=== PATIENT | female | born 2005 | race Caucasian/White ===

== ENCOUNTER 2025-05-27 09:22 | Outpatient (AMB) | payer OTHER, SELFPAY ==
--- NOTE | 2025-05-27 09:26 | MHC.PC.OV ---
Vital Signs 05/27/25 09:34 05/27/25 10:05 Height 5 ft 4 in Weight 165 lb 4 oz BMI 28.4 BP 98/67 Blood Pressure Location Lt brachial Position Sitting Respiration 12 Pulse 103 H 90 Pulse Source Pulse Oximeter Auscultation Temp 97.1 F Temp Source Oral Pulse Oximetry (%) 99 Oxygen Delivery Method Room Air Intake Visit Reasons: CPE Intake Note: New patient to establish care and cpe School Supervisor Required: No Allergies No Known Allergies Allergy (Verified 05/27/25 09:38) Medication List - Last Reviewed 05/27/25 by Artem Ventura MA bupropion HCl 75 mg PO TID methylphenidate HCl ER (Concerta) 54 mg PO QAM trazodone 50 mg PO BEDTIME PRN Tobacco use date assessed: 05/27/25 Dental Screening Dental Screen Date: 05/27/25 Did you have a dental visit in the last 12 months?: Yes Did you have a dental problem in the last 6 months where you did not have access to dental care?: No Was dental information given to patient?: Patient has dentist HPI HPI Comments History of Present Illness Details 19 y/o F with ADHD, JODIE, OCD, MDD Social: works at [employer]; vapes nicotine & marijauna Surgery: None Fhx: Mom and Dad alive; No relationship w/ bio dad; Health Maintenance Pap to be done this year Tdap 2016 Specialists: Optho wears glasses Cards reports she was evaled in the past; i dont have these records. Had what sounds like Event Monitor. STates negative. [facility] in [place] Previous PCP Dr Prema Adamson records - The patient is a 19-year-old female presenting with ADHD. - Concerta: taking for ADHD, wants to stop as it causes sweats, tachycardia. . - Anxiety results in panic attacks and OCD behaviors. - Strattera previously ineffective for ADHD and anxiety. - Depression/OJDIE managed with Wellbutrin. - Current use of trazodone for sleep. - Sx of MDD JODIE OCD ADHD remain uncontrolled was in counseling in the past interested in counseling and med mgmt referral - Nicotine and cannabis use reported; plans to quit nicotine. Past Surgical History - No surgery history reported. Family History - Maternal history of various autoimmune disorders, heart issues, and upcoming knee replacement surgery at age 42. - Biological father with substance abuse history and no relationship maintained. 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 - Vaping nicotine and using a THC/CBD combination for relaxation, though acknowledges nicotine exacerbates anxiety. - Long-term relationship with a boyfriend (4 years). - Previously under care of a pediatric therapist until adulthood; seeking adult therapist. Review of Systems - Psychiatric: Reports anxiety, OCD behaviors, and history of depression. - Cardiovascular: Reports irregular heart rate related to past Concerta use. - Respiratory: Denies current issues. - Gastrointestinal: Polyuria noted. Physical Exam General: Well developed, well nourished, in no acute distress. Appears stated age. Head: Normocephalic, atraumatic. Eyes: Pupils are equal, round and reactive to light and accommodation. Conjunctivae are clear. Vision grossly normal. Ears: TMs clear AU, EACS WNL Nose: Patent, without discharge.Mouth: There are no ulcers or lesions noted. No inflammation, no post nasal drip, no plaques nor exudates. Neck: Supple, no adenopathy or thyromegaly. Breast: Edu on SBE Lungs: Clear to auscultation bilaterally. No rales, rhonchi or wheeze noted. Good air flow in all diaz. Heart: Regular rate and rhythm. No murmurs, click, rubs or gallops are noted. Abdomen: Bowel sounds present in all quadrants. The abdomen is soft, nontender, with no masses or organomegaly noted. No hernias are noted. : Deferred. Reviewed recommendations for routine MEDICAL COMMUNICATION SPECIALIST Musculoskeletal: Joints are nontender, without swelling, redness, or effusions. Range of motion is observed to be normal. Pulses: Peripheral pulses are equal and palpable bilaterally. Extremities: No clubbing, cyanosis nor edema is noted. Neurologic: Gait and station normal. Cranial Nerves 2-12 intact. Motor strength grossly symmetrical and intact. No sensory loss. Balance normal. Skin: No rashes, ulcers, or lesions noted. Turgor is good. Skin color is good. Hair and nails are without abnormalities. Psych: Normal eye contact, affect and mood appropriate, and normal interactions. Anxious, pleasant Results Pending Discussion Notes I discussed with the patient her concerns regarding ADHD medication. I reviewed the adverse effects she experienced with Concerta, including tachycardia and anxiety exacerbation, and agreed to discontinue the medication. We discussed previous medication trials such as Strattera, which was ineffective, and her current regimen of Wellbutrin and Trazodone. We also discussed her nicotine use via vaping and cannabis use and acknowledged that while cannabis seems calming, nicotine worsens anxiety. She expressed a desire to quit nicotine, and I encouraged this plan. For her anxiety and OCD, I will place a referral for both counseling and a psychiatrist or medication entry level management who accepts her insurance. I initiated the process for necessary blood work today to investigate additional conditions such as diabetes. I reassured her of local mental health resources and crisis lines available to her. Patient was given time to ask questions. All questions were answered to their satisfaction. Assessment and Plan 1. ADHD - Discontinue Concerta. 2. Anxiety and OCD - Referral for psychiatric evaluation. - Encourage nicotine cessation. 3. Depression - Continue Wellbutrin. 4. Nicotine Dependence - Efforts to cease discussed. Patient Instructions - Discontinue Concerta immediately. - Continue taking Wellbutrin as prescribed. - Use Trazodone as a sleep aid when necessary. - Expect a call for a referral to a counselor and psychiatrist. - Attempt to quit vaping nicotine; seek out resources to assist with quitting. - Complete blood work today to check for diabetes. - Visit urgent care or hospital if anxiety becomes unmanageable. - Contact the office through the [facility] for any concerns or needed appointments. - RTO 1 year CPE Consent Patient was informed and verbally consented to the use of an ambient scribe for clinic note documentation during this visit. An additional 30 minutes was spent addressing the problem(s) noted at todays visit. This includes time spent before the visit reviewing the chart, time spent during the visit, and time spent after the visit on documentation reviewing laboratory results, diagnostic imaging, medications, performing a medically necessary evaluation, counseling on diagnoses, care coordination, ordering appropriate tests, ordering appropriate medications, review of tests performed by other providers, reporting test results with the patient, communication with other healthcare providers. COUNT INCLUDES THE [facility] Medical History (Updated 05/27/25 @ 10:11 [facility] Anxiety Hemorrhoids No pertinent family history Palpitations Surgical History (Updated 05/27/25 @ 09:40 by Artem Ventura MA) No pertinent past surgical history Social History (Updated 05/27/25 @ 09:26 by Artem Ventura MA) Housing: House Alcohol intake: current Alcohol intake frequency: a few times a month Patient Tobacco Use Status: Never used Tobacco e-Cigarette/Vaping Use: Never Used Second Hand Smoke Exposure: No service: No Current occupational status: employed Current occupation: [employer] Cognitive needs: No Hearing needs: No Vision needs: Yes (wear glasses) Questionnaire PHQ-9 Over the last 2 weeks, how often have you been bothered by any of the following problems? 1. Little interest or pleasure in doing things: several days 2. Feeling down, depressed, or hopeless: not at all 3. Trouble falling or staying asleep, or sleeping too much: several days 4. Feeling tired or having little energy: several days 5. Poor appetite or overeating: several days 6. Feeling bad about yourself - or that you are a failure or have let yourself or your family down: not at all 7. Trouble concentrating on things, such as reading the newspaper or watching television: more than half the days 8. Moving or speaking so slowly that other people could have noticed. Or the opposite - being so fidgety or restless that you have been moving around a lot more than usual: more than half the days 9. Thoughts that you would be better off or of hurting yourself in some way: not at all Total score: 8 Depression Screening Interpretation: Positive Depression Screening Follow-up: Existing condition and In treatment Depression Screening Done: Yes 65885 - PHQ-9 Billing: Yes Source: Developed by Drs. Nathanael Amin, Isabela Garcia, Malvin Smith and colleagues, with an educational rigoberto from [employer]. Thrive Questionnaire Date Thrive assessed: 05/27/25 I am a: Patient What is your living situation today?: I have a steady place to live Within the past 12 months, did the food you bought not last and you didn't have the money to get more?: Never true Within the past 12 months, did you worry whether your food would run out before you got money to buy more?: Never true Do you have trouble paying for medicines?: No Do you have trouble getting transportation to medical appointments?: No Do you have trouble paying your heating and electricity bill?: No Do you have trouble taking care of your child, family member or friend?: No Do you have trouble with day-to-day activities such as bathing, preparing meals, shopping, managing finances, etc.?: No Are you currently unemployed and looking for a job?: No Are you interested in more education?: No Please select the resources that you would like help with: None Currently or been in a relationship where the following occur: No concerns reported THRIVE Score: 0 AUDIT C Alcohol Use Questionnaire (AUDIT-C) 1. How often do you have a drink containing alcohol?: 2-4 times a month 2. How many drinks containing alcohol do you have on a typical day when you are drinking?: 3 or 4 3. How often do you have six or more drinks on one occasion?: Less than monthly Total Score: 4 Score Reviewed/Action Taken: Yes JODIE-7 AMB Questionnaire JODIE-7 Date JODIE - 7 assessed: 05/27/25 Feeling nervous, anxious, or on edge: 3 = Nearly every day Not being able to stop or control worryin = Nearly every day Worrying too much about different things: 3 = Nearly every day Trouble relaxin = Nearly every day Being so restless that it is hard to sit still: 3 = Nearly every day Becoming easily annoyed or irritable: 3 = Nearly every day Feeling afraid as if something awful might happen: 3 = Nearly every day Total JODIE-7 score (0-4 normal; 5-9 mild; 10-14 moderate; 15-21 severe): 21 Source: Developed by Drs. Nathanael Amin, Isabela Garcia, Malvin Smith and colleagues, with an educational rigoberto from [employer]. JODIE-7 Assessment Billing JODIE-7 Assessment Tool: JODIE-7 Assessment 01739 Physical exam (Primary Care) Vital Signs: Last Vital Signs Temp 97.1 F 05/27/25 09:34 Pulse 103 H 05/27/25 09:34 Resp 12 05/27/25 09:34 BP 98/67 05/27/25 09:34 Pulse Ox 99 05/27/25 09:34 Oxygen Delivery Method Room Air 05/27/25 09:34 BMI result Body Mass Index 28.4 Tobacco/Smoking Status: Tobacco use Status Tobacco use date assessed 05/27/25 05/27/25 09:29 Patient Tobacco Use Status Never used Tobacco 05/27/25 09:29 e-Cigarette/Vaping Use Never Used 05/27/25 09:29 PHQ-9: PHQ-9 Score PHQ-9: Total score 8 05/27/25 09:32 Depression Screening Interpretation: Positive Depression Screening Follow-up: Existing condition and In treatment Thrive Assessment: Date of Thrive Assessment Date Thrive assessed 05/27/25 05/27/25 09:29 Currently or been in a relationship where the following occur: No concerns reported Coding Level of Care Code New Pt Level 3 (39255) New Pt Prev Care 18-39yr(33263 Diagnoses Encounter to establish care with new provider Z76.89 JODIE (generalized anxiety disorder) F41.1 Attention deficit hyperactivity disorder (ADHD), predominantly inattentive type F90.0 Attention deficit-hyperactivity disorder type: predominantly inattentive Mixed obsessional thoughts and acts F42.2 Obsessive-compulsive disorder type: mixed obsessional thoughts and acts Nicotine vapor product user Z72.0 Marijuana use F12.90 Laboratory exam ordered as part of routine general medical examination Z00.00 IUD (intrauterine device) in place Z97.5 Encounter for general adult medical examination without abnormal findings Z00.00 Additional Codes JODIE-7 Assessment Billing - JODIE-7 Assessment Tool: JODIE-7 Assessment 75353 ([id number]) PHQ-9 - 31886 - PHQ-9 Billing: Yes ([id number]) Assessment & Plan Assessment & Plan (1) Encounter to establish care with new provider: Code(s): Z76.89 - Persons encountering health services in other specified circumstances (2) JODIE (generalized anxiety disorder): Comment: has been on clonidine, vistaril, ativan and escitalopram in the past Code(s): F41.1 - Generalized anxiety disorder Category: Medical (3) ADHD: Comment: concerta caused cold sweats, shakes and tachycardia trialed straterra this did not help ADHD sx Code(s): F90.9 - Attention-deficit hyperactivity disorder, unspecified type Category: Medical Qualifiers: Attention deficit-hyperactivity disorder type: predominantly inattentive Qualified Code(s): F90.0 - Attention-deficit hyperactivity disorder, predominantly inattentive type (4) OCD (obsessive compulsive disorder): Code(s): F42.9 - Obsessive-compulsive disorder, unspecified Category: Medical Qualifiers: Obsessive-compulsive disorder type: mixed obsessional thoughts and acts Qualified Code(s): F42.2 - Mixed obsessional thoughts and acts (5) Nicotine vapor product user: Code(s): Z72.0 - Tobacco use Category: Social Hx (6) Marijuana use: Code(s): F12.90 - Cannabis use, unspecified, uncomplicated Category: Social Hx (7) Laboratory exam ordered as part of routine general medical examination: Code(s): Z00.00 - Encounter for general adult medical examination without abnormal findings Category: Medical (8) IUD (intrauterine device) in place: Code(s): Z97.5 - Presence of (intrauterine) contraceptive device Category: Medical (9) Encounter for general adult medical examination without abnormal findings: Onset Date: ~05/27/25 Code(s): Z00.00 - Encounter for general adult medical examination without abnormal findings Category: Medical Plan . Orders: Orders Complete Blood Count no Diff Today Z00.00 - Encounter for general adult medical examination without abnormal findings TSH reflex Free T4 Today Z00.00 - Encounter for general adult medical examination without abnormal findings Comprehensive Met. Panel Today Z00.00 - Encounter for general adult medical examination without abnormal findings Hemoglobin A1c Today Z00.00 - Encounter for general adult medical examination without abnormal findings Lipid Panel Today Z00.00 - Encounter for general adult medical examination without abnormal findings Vitamin B12 and Folate Today Z00.00 - Encounter for general adult medical examination without abnormal findings Vitamin D 25-OH Total Today Z00.00 - Encounter for general adult medical examination without abnormal findings Referrals Nurse Navigator Referral F41.1 - Generalized anxiety disorder, F42.9 - Obsessive-compulsive disorder, unspecified, F90.9 - Attention-deficit hyperactivity disorder, unspecified type Patient Instructions: Walk-In Care (Urgent Care): We Make it Easy Walk-in for urgent medical issues such as: ? Seasonal Allergies ? Insect Bites ? Cough ? Diarrhea ? Acute Asthma Attacks ? Back, Knee or Joint Pain ? Ear Infection ? Fever without a Rash ? Headaches ? Nausea ? [place] Eye, Rash or Skin Irritation ? Sore Throat ? Sports Physicals ? Vomiting Most insurances are accepted. Patients do not need to be part of the [facility] to seek care at the walk-in clinic. Locations [facility] , [place] [address] ? [phone] [facility] in [place] provides services to ages 18 and over. Open Friday-Friday: 7 a.m. to 5 p.m. and Friday: 9 a.m. to 3 p.m.* *Hours may vary due to staffing availability. To confirm Walk-In Care hours in [place], please call [phone]. [address] [place] [address] ? [phone] [facility] in [place] provides services to ages 12 and over. Open Friday-Friday: 8 a.m. to 5 p.m. Hours may vary due to staffing availability. To confirm Walk-In Care hours in [place], please call [phone]. LABORATORY SERVICES: [facility] Lab ? Primary Location [address] [place] [address] Friday through Friday 6:00 AM ? 5:00 PM Friday 7:00 AM ? 11:00 AM* [phone] The [facility] Lab is centrally located near the front entrance of the [facility] for easy outpatient access. Convenient parking is provided for outpatients. *Hours may vary due to staffing availability. To confirm Laboratory hours for any location, please call [phone]. Offsite Location For your convenience, we offer offsite laboratory draw stations at the following locations: [address] [place] [address] ? [address], [address] Friday through Friday 7:30 AM ? 1:00 PM* [phone] *Hours may vary due to staffing availability. To confirm Laboratory hours for any location, please call [phone]. [place] ? [address] Friday through Friday 6:00 AM ? 3:30 PM* Friday 6:30 AM ? 3 PM* [phone] *Hours may vary due to staffing availability. To confirm Laboratory hours for any location, please call [phone] [place] [address] Friday through Friday 7:30 AM ? 4:00 PM* [phone] *Hours may vary due to staffing availability. To confirm Laboratory hours for any location, please call [phone]. [facility] Friday through 9:00 AM ? 4:00 PM* *Hours may vary due to staffing availability. To confirm Laboratory hours for any location, please call [phone]. Appointments are not necessary. Walk-ins are welcome. Like all the departments throughout the [facility], our Lab undergoes frequent reviews to ensure the quality and accuracy of test results, and our staff takes special pride in its status as a nationally accredited facility. Patient Portal: [facility] ONE PATIENT. ONE RECORD. BETTER CARE. [facility] has a fully integrated, cutting-edge mobile electronic health information system that has revolutionized the way we care for our patients and manage our organization. This system improves communication and coordination enabling us to provide safe, higher-quality care, and an overall positive experience for staff and patients. Our first priority, as always, is to deliver the highest quality care possible. The system is running in the background supporting that priority. This portal is for all [facility] services and practices. If you are experiencing any technical difficulties with enrolling or logging into the Patient Portal please complete the [facility] Patient Portal Technical Support Form. [facility] now offers a new secure on-line interactive tool for patients to review their health information ? ?Patient Portal. This interactive web portal will enable patients and their families to take an active role in their care by providing easy, secure access to their health information via the internet. The Patient Portal provides patients with instant access to their health information, including laboratory results, medications, allergies, demographic information, visit history, and more. In addition to managing their own care, parents and health care proxies with authorized consent will appreciate the ability to access the records of those individuals for whom they provide care. Please note: if you wish to gain access (Proxy) to another patient?s portal, you will be required to come to the Medical Records Department in person at [facility]. Both the patient giving proxy access and the proxy will need to provide photo identification and complete the appropriate authorization. The Patient Portal also allows track their appointments online. The [facility] Patient Portal also saves patients time by allowing them to submit updates to their demographic and contact information prior to their visits. Portal email notifications will also alert patients to any new activity on their portal, such as test results and new appointments. In order to initially enroll in the [facility] Patient Portal, you will need to enter some required information including the following: your [facility] Medical Record number your personal home email address name date of Please note: In order to enroll in the [facility] Patient Portal, we need to have your email address on file in your electronic medical record. ?The email address needs to be specific for one person (yourself) in order for your Portal enrollment to be successful. ?You can update your email address in person with our Registration staff when you are registering for a hospital visit. ?Otherwise, you will need to come to the Health Information Management (Medical Records) Department at [facility]. ?We are open from Friday ? Friday from 7:30 a.m. ? 4:30 p.m. ?You will be required to present a photo id. Once you have successfully enrolled in the Patient Portal, you will receive a one-time user id and password for the Portal, sent to your email address. ?This will allow you to log into the Patient Portal within 99 hrs and reset your own logon id and password, and define personal security questions. ?Once your permanent login and password have been set, you can log into the [facility] Patient Portal at any time via the blue button above or from the Portal Logon button on any page of the [facility] website. [facility] encourage all of our patients to enroll in Patient Portal as it presents a valuable opportunity for patients and their families to actively participate in their care and stay healthy Welcome to [facility]. ?We look forward to working with you. National Suicide and Crisis Lifeline: Available 24 hours a day, 7 days a week, 365 days a year Dial 988 with any telephone to speak to someone immediately [address] [address] , Walk ins [facility] (Mental / Behavioral health therapist: [address] [place] [address] [facility]: [address], [place] [id number] Open from 10am - 12pm (walk ins [place]) [facility] Crisis Services: [address] [place] [address] Walk in hours from 10am - 12pm Behavioral health Network: [address] [place] [phone] [place] [id number] Friday through Friday 8am - 8pm Friday and Friday 9am - 5pm Crisis Hotlines Suicide prevention, domestic violence, and other crisis hotlines for youth, young adults, and their friends and families. [facility] Safeline: The [facility] Safeline helps youth who have run away, are thinking about running away, or who already ran away but are ready to come home. Parents and guardians can also contact the hotline if they are worried about their child running away or if their child has already left home. The hotline is available 24 hours a day, seven days a week. Youth, parents, and guardians can also use the online chat feature on the [facility] website to ask for help and get support, or can send a text to [facility]. [facility] National Suicide Prevention Lifeline: The National Suicide Prevention Lifeline is a network of local crisis centers that are available 28/04 to provide support for youth and adults who are in any kind of emotional crisis. In addition to the main hotline number listed above, there are several other numbers to call depending on your needs: Chilean Language: Deaf and Hard of [phone] Veterans: Disaster Distress: Anyone can also use their online chat feature on their website. National Suicide Prevention Lifeline [facility] Helpline: The [facility] Helpline is available to anyone in [place] who is need of emotional support. Anyone can call or text the helpline to receive help from specially trained volunteers. [place] high school and college students can also get online support through the IMH[employer]_ program. For high school students, volunteers ages 15-18 are available Friday- from 6-9PM. For college students, IMHear_ is available Friday-Friday from 5-9PM. The Avery Project - The Avery Project is a 28/04 crisis intervention and suicide prevention hotline for LGBTQ youth. Youth can also text Avery to for support, or use the online chat feature on the Avery Project's website. [employer] is available Friday-Friday between 3-10PM. [employer] is available seven days a week between 3-10PM. SafeLink: SafeLink is for anyone who is being affected by domestic violence or dating violence. Volunteers at [employer] speak Indonesian and [place]an, and [employer] also has a service that can provide translation in more than 130 languages. TTY: Health screenings for women You should visit your health care provider from time to time, even if you are healthy. The purpose of these visits is to: Screen for medical issues Assess your risk for future medical problems Encourage a healthy lifestyle Update vaccinations and other preventive care services Help you get to know your provider in case of an illness Information Even if you feel fine, you should still see your provider for regular checkups. These visits can help you avoid problems in the future. For example, the only way to find out if you have high blood pressure is to have it checked regularly. High blood sugar and high cholesterol levels also may not have any symptoms in the early stages. A simple blood test can check for these conditions. There are specific times when you should see your provider or receive specific health screenings. The [place] Preventive Services Task Force publishes a list of recommended screenings. Below are screening guidelines for women ages 18 to 39. BLOOD PRESSURE SCREENING Your blood pressure should be checked at least once every 3 to 5 years if: Your blood pressure is in the normal range (top number less than 120 mm Hg and bottom number less than 80 mm Hg) You don't have risk factors for high blood pressure Ask your provider if you need your blood pressure checked more often if: The top number is 120 to 129 mm Hg or the bottom number is 70 to 79 mm Hg You have diabetes, heart disease, kidney problems, are overweight, or have certain other health conditions You have a first-degree relative with high blood pressure You are Black You had high blood pressure during a If the top number is 130 mm Hg or greater or the bottom number is 80 mm Hg or greater, this is considered stage 1 hypertension. Schedule an appointment with your provider to learn how you can reduce your blood pressure. Watch for blood pressure screenings in your area. Ask your provider if you can stop in to have your blood pressure checked. BREAST CANCER SCREENING Experts do not agree about the benefits of breast self-exams in finding breast cancer or saving lives. Talk to your provider about what is best for you. A screening mammogram is not recommended for most women under age 40. Your provider may discuss and recommend mammograms, MRI scans, or ultrasounds if you have an increased risk for breast cancer, such as: A mother or sister who had breast cancer at a young age (most often starting screening earlier than the age the close relative was diagnosed) You carry a high-risk genetic marker CERVICAL CANCER SCREENING Cervical cancer screening should start at age 21 years unless your provider advises otherwise. After the first test: Women ages 21 through 29 should have a Pap test every 3 years. Exoprts do not agree on whether HPV testing is recommended for this age group. Women ages 30 through 65 should be screened with either a Pap test every 3 years or the HPV test every 5 years or both tests every 5 years (called cotesting ). Women who have been treated for precancer (cervical dysplasia) should continue to have Pap tests for 20 years after treatment or until age 65, whichever is longer. If you have had your uterus and cervix removed (total hysterectomy), and you have not been diagnosed with cervical cancer or precancer (high grade cervical neoplasia), you do not need cervical cancer screening. CHOLESTEROL SCREENING Cholesterol screening should begin at: Age 45 for women with no known risk factors for coronary heart disease Age 20 for women with known risk factors for coronary heart disease Repeat cholesterol screening should take place: Every 5 years for women with normal cholesterol levels More often if changes occur in lifestyle (including weight gain and diet) More often if you have diabetes, heart disease, kidney problems, or certain other conditions DIABETES SCREENING You should be screened for diabetes starting at age 35 and then repeated every 3 years if you have no risk factors for diabetes. Screening may need to start earlier and be repeated more often if you have other risk factors for diabetes, such as: You have a first degree relative with diabetes. You are overweight or have obesity. You have high blood pressure, prediabetes, or a history of heart disease. Screening for diabetes should be done if you are planning to become and you are overweight and have other risk factors such as high blood pressure. DENTAL EXAM Go to the dentist once or twice every year for an exam and cleaning. Your dentist will evaluate if you need more frequent visits. EYE EXAM Have an eye exam every 5 to 10 years before age 40. If you have vision problems, have an eye exam every 2 years or more often if recommended by your provider. You should have an eye exam that includes an examination of your retina (back of your eye) at least every year if you have diabetes. IMMUNIZATIONS Commonly needed vaccines include: Flu shot: get one every year. COVID-19 vaccine: ask your provider what is best for you. Tetanus-diphtheria and acellular pertussis (Tdap) vaccine: have one at or after age 19 as one of your tetanus-diphtheria vaccines if you did not receive it as an adolescent. Tetanus-diphtheria: have a booster (or Tdap) every 10 years. Varicella vaccine: receive 2 doses if you never had chickenpox or the varicella vaccine. Hepatitis B vaccine: receive 2, 3, or 4 doses, depending on your exact circumstances. Measles, mumps, and rubella (MMR) vaccine: receive 1 to 2 doses if you are not already immune to MMR. Your provider can tell you if you are immune. Ask your provider about the human papillomavirus (HPV) vaccine if: You have not received the HPV vaccine in the past You have not completed the full vaccine series (you should catch up on this shot) Ask your provider if you should receive other immunizations if you have certain health problems that increase your risk for some diseases such as pneumonia. INFECTIOUS DISEASE SCREENING Women who are sexually active should be screened for chlamydia and gonorrhea up until age 25. Women 25 years and older should be screened for chlamydia and gonorrhea if at high risk. Screening for hepatitis C: All adults ages 18 to 79 should get a one-time test for hepatitis C. people should be screened at every . Screening for human immunodeficiency virus (HIV): All people ages 15 to 65 should get a one-time test for HIV. Depending on your lifestyle and medical history, you may also need to be screened for infections such as syphilis and HIV, as well as other infections. PHYSICAL EXAM All adults should visit their provider from time to time, even if they are healthy. The purpose of these visits is to: Screen for disease Assess your risk of future medical problems Encourage a healthy lifestyle Update your vaccinations and other preventive care services Maintain a relationship with a provider in case of an illness Your height, weight, and BMI should be checked at every exam. During your exam, your provider may ask you about: Depression and anxiety Diet and exercise Alcohol and tobacco use Safety issues, such as using seat belts, smoke detectors, and intimate partner violence Your medicines and risk for interactions SKIN SELF-EXAM Your provider may check your skin for signs of skin cancer, especially if you're at high risk, such as if you: Have had skin cancer before Have close relatives with skin cancer Have a weakened immune system OTHER SCREENING Talk with your provider about colon cancer screening if you have a strong family history of colon cancer or polyps, or if you have had inflammatory bowel disease or polyps yourself. Routine bone density screening of women under 40 is not recommended.
--- OUTSIDE RECORDS SUMMARY | 2025-05-27 09:28 | XMS_ITS | Clinical Summary ---
Author Organization [facility] it Address [address] [place] [address] Care Team Providers Care Town Planner Name Role Phone Carisa Lloyd MD Primary Care Provider [phone] Social History Tobacco Use Types Packs/Day Years Used Date Smoking Tobacco: Never Smokeless Tobacco: Never Comments Unknown Sex and Gender Information Value Date Recorded Sex Assigned at Not on file Legal Sex Female 3:36 AM EST Gender Identity Not on file Sexual Orientation Not on file Obstetrics History Plan of Treatment Health Maintenance Due Date Last Done Comments Gonorrhea/Chlamydia Screening 2003 HPV Vaccines (1 - 3-dose series) 2018 Meningococcal B Vaccine (1 o f 2 - Standard) 2019 Hepatitis A Vaccines (2 of 2 - 2-dose series) 01/08/2020 07/09/2019 DTaP,Tdap,and Td Vaccines (1 - Tdap) 2022 Hepatitis B Vaccines (1 of 3 - 19+ 3-dose series) 2022 Annual Well Child Visit (3-2 1 years old) 11/04/2023 07/09/2019 HIV Screening 11/04/2023 Hepatitis C Screening 11/04/2023 Social Influencers of Health Screening 11/04/2023 COVID-19 Vaccine ( - 2023-2 5 season) 2024 Cervical Cancer Screening: P ap Smear 2024 Depression Screening 10/06/2024 Influenza Vaccine (#1) 2025 07/09/2019 HIB Vaccines Aged Out No longer eligi ble based on patient's age to complete this topic IPV Vaccines Aged Out No longer eligi ble based on patient's age to complete this topic MMR Vaccines Aged Out No longer eligi ble based on patient's age to complete this topic Meningococcal ACWY Vaccine Aged Out N o longer eligible based on patient's age to complete this topic Pneumococcal Vaccine: Pediat rics (0 to 5 Years) and At-Risk Patients (6 to 49 Years) Aged Out No longer eligi ble based on patient's age to complete this topic RSV Immunization Patients Un nilson 20 months Aged Out No longer eligible b ased on patient's age to complete this topic Varicella Vaccines Aged Out No longer eligible based on patient's age to complete this topic Care Teams Town Planner Relationship Specialty Start Date End Date Carisa Lloyd MD [address] [place] [address] [place] [address] PCP - General Pediatrics 02/23/19
[2025-05-27 09:34] VITALS: BP 98/67; PULSE 103; RESP 12; TEMP 36.2; O2SAT 99; BMI 28.4
[2025-05-27 10:05] VITALS: PULSE 90
== END 2025-05-27 10:07 | disposition home or self-care (01) ==
LOC: HO.HMCFM 09:22
PROVIDERS: PCP Nurse Practitioner Family; Visit Provider Nurse Practitioner Family
DX: Z00.00 Encounter for general adult medical examination without abnormal findings (principal); F90.0 Attention-deficit hyperactivity disorder, predominantly inattentive type; Z76.89 Persons encountering health services in other specified circumstances; F41.1 Generalized anxiety disorder; F42.2 Mixed obsessional thoughts and acts; Z72.0 Tobacco use; F12.90 Cannabis use, unspecified, uncomplicated; Z97.5 Presence of (intrauterine) contraceptive device

== ENCOUNTER → 2025-05-27 09:22 | Outpatient (BNVA) | payer OTHER, SELFPAY | PROVIDERS: PCP Nurse Practitioner Family; Visit Provider Nurse Practitioner Family | DX: F41.1 Generalized anxiety disorder (principal); F90.9 Attention-deficit hyperactivity disorder, unspecified type; F42.9 Obsessive-compulsive disorder, unspecified; F32.9 Major depressive disorder, single episode, unspecified; F90.0 Attention-deficit hyperactivity disorder, predominantly inattentive type; F42.2 Mixed obsessional thoughts and acts; F12.90 Cannabis use, unspecified, uncomplicated; F17.210 Nicotine dependence, cigarettes, uncomplicated; Z97.5 Presence of (intrauterine) contraceptive device; Z76.89 Persons encountering health services in other specified circumstances | CPT/HCPCS: 96127; 99202; 99385 ==